=== PATIENT | female | born 1960 | race African-American/Black ===

== ENCOUNTER 2017-05-02 18:54 | Emergency (ER) | payer MEDICARE ==
[~2017-05-02] VITALS: Ht 160 cm; Wt 77.3 kg
[~2017-05-02 18:54] MED LIST: ADALAT CC/P30 MG/TA1 PO; ALLEGRA180 MG PO; AMARYL4 MG PO; ASPIRIN81 MG PO; CIPROFLOXACN500 MG PO; CLONIDINE0.1 MG PO; DIABETA2.5 MG OR; DIABETA5 MG PO; DIOVAN80 MG OR; EFFIENT10 MG PO; FENTANYL TD; FLECTOR1.3 % TD; FLUTICASONE50 MCG; GLIMEPIRIDE2 MG PO; HYDROCHLOROT25 MG OR; HYDROCHLOROT25 MG PO; HYDROCHLOROT50 MG PO; HYZAAR1 TA1 PO; JANUVIA50 MG PO; KAON-CL-1010 MEQ OR; LIBRIUM5 MG OR; LIPITOR40 M1 PO; LO-DOSE ASA81 MG OR; LOPRESSOR25 MG PO; LORTAB5 OR; LOSARTAN POT50 MG PO; METFORMIN1000 MG PO; METFORMIN500 MG PO; METFORMIN850 MG PO; METO25TAB OR; METOPROL TAR25 MG PO; METOPROLOL25 M1 OR; MUCINEX600 MG PO; NIFEDIPINE30 MG PO; PLAVIX75 MG PO; PRAVACHOL20 MG OR; PRAVASTATIN SOD20 MG PO; PROVENTIL HFA IN; SYMBICORT1 AE1 IN; TIZANIDINE4 MG OR; TRAMADOL HCL50 MG PO; VICOPROFEN OR; ZANAFLEX4 M1 OR; ZANAFLEX4 M2 PO; ZANAFLEX4 MG PO; ZITHROMAX250 MG PO; ZOFRAN4 MG/TAB PO
[2017-05-02 20:45] LABS: HEMATOCRIT 38.1 % (37.0-47.0); HEMOGLOBIN 11.9 g/dl (12.0-16.0); IMMATURE GRANULOCYTES 0.3 % (0.0-1.0); MEAN CELL VOLUME 84.1 fL CALC (80.0-100.0); MEAN CORPUSCULAR HGB 26.3 pG CALC (26.0-32.0); MEAN CORPUSCULAR HGB CONC 31.2 g/L CALC (32.0-36.0); NEUT# 3.95 thou/uL (2.00-7.15); RED BLOOD COUNT 4.53 mill/uL (4.20-5.60)
[2017-05-02 21:04] LABS: ANION GAP 16 (6-22 (CALC)); BUN 12 mg/dL (7-17); BUN/CREATININE RATIO 15 (12-20 (CALC)); CARBON DIOXIDE 28 mmol/l (22-30); CHLORIDE 102 mmol/l (95-108); CREATININE 0.8 mg/dL (0.5-1.0); GFR > 60 ML/MIN (>=60 (CALC)); GFR FOR AFR.AMER. > 60 ML/MIN (>=60 (CALC)); GLUCOSE 126 mg/dL (65-105); SODIUM 142 mmol/l (137-146)
[2017-05-02] MEDS ORDERED: PANTOPRAZOLE SO40 MG PO (21:37)
[2017-05-02] MEDS ORDERED: NIFEDIPINE30 MG PO (21:39)
[2017-05-02] MEDS ORDERED: LIPITOR40 M1 PO (21:41)
[2017-05-02 22:20] VITALS: BP 157/78
== END 2017-05-02 22:22 | disposition left against medical advice (07) ==
LOC: ED 18:54
PROVIDERS: Family Medicine
DX: R07.9 Chest pain, unspecified (principal); Z91.19 Patient's noncompliance with other medical treatment and regimen; R10.13 Epigastric pain; I10 Essential (primary) hypertension; I25.2 Old myocardial infarction; E11.9 Type 2 diabetes mellitus without complications; Z79.84 Long term (current) use of oral hypoglycemic drugs

== ENCOUNTER 2017-07-31 20:41 | Emergency (ER) | payer MEDICARE ==
[~2017-07-31] VITALS: Ht 160 cm; Wt 79.8 kg
[~2017-07-31 20:41] MED LIST changes: +PANTOPRAZOLE SO40 MG PO
[2017-07-31] MEDS ORDERED: NOVOLIN N100 UNIT/1 SC (21:06)
[2017-07-31 23:55] VITALS: BP 155/83
== END 2017-07-31 23:55 | disposition home or self-care (01) ==
LOC: ED 20:41
DX: I10 Essential (primary) hypertension (principal); I25.2 Old myocardial infarction

== ENCOUNTER 2017-08-04 11:27 | Emergency (ER) | payer MEDICARE ==
[~2017-08-04] VITALS: Ht 160 cm; Wt 75.0 kg
[~2017-08-04 11:27] MED LIST changes: +NOVOLIN N100 UNIT/1 SC
[2017-08-04 12:15] LABS: HEMATOCRIT 41.5 % (37.0-47.0); HEMOGLOBIN 12.8 g/dl (12.0-16.0); IMMATURE GRANULOCYTES 0.2 % (0.0-1.0); MEAN CELL VOLUME 82.3 fL CALC (80.0-100.0); MEAN CORPUSCULAR HGB 25.4 pG CALC (26.0-32.0); MEAN CORPUSCULAR HGB CONC 30.8 g/L CALC (32.0-36.0); NEUT# 2.96 thou/uL (2.00-7.15); RED BLOOD COUNT 5.04 mill/uL (4.20-5.60); RED CELL DISTRI WIDTH 13.9 % (11.5-15.5)
[2017-08-04 12:38] LABS: ALKALINE PHOSPHATASE 86 u/l (38-126); BILIRUBIN, TOTAL 0.6 mg/dL (0.0-1.4); BUN 11 mg/dL (7-17); BUN/CREATININE RATIO 14 (12-20 (CALC)); CARBON DIOXIDE 25 mmol/l (22-30); CHLORIDE 97 mmol/l (95-108); CREATININE 0.8 mg/dL (0.5-1.0); GFR > 60 ML/MIN (>=60 (CALC)); GFR FOR AFR.AMER. > 60 ML/MIN (>=60 (CALC)); POTASSIUM 4.2 mmol/l (3.5-5.1); SGOT/AST 21 u/l (14-36); SGPT/ALT 38 u/l (9-52); TOTAL PROTEIN 7.2 g/dL (6.3-8.2)
[2017-08-04 12:39] LABS: ANION GAP 15 (6-22 (CALC)); SODIUM 133 mmol/l (137-146)
[2017-08-04 12:50] LABS: URINE BILIRUBIN - DIPSTICK NEGATIVE (NEGATIVE); URINE BLOOD DIPSTICK NEGATIVE (NEGATIVE); URINE COLOR YELLOW; URINE GLUCOSE - DIPSTICK NEGATIVE (NEGATIVE); URINE KETONE NEGATIVE (NEGATIVE); URINE LEUK ESTERASE NEGATIVE (NEGATIVE); URINE NITRITE - DIPSTICK NEGATIVE (Negative); URINE PROTEIN - DIPSTICK NEGATIVE (NEG-TRACE); URINE UROBILINOGEN - DIPSTICK 0.2 E.U./dL (0.2)
[2017-08-04 12:51] LABS: URINE CLARITY CLEAR
[2017-08-04] MEDS ORDERED: NIFEDICAL XL60 MG PO (12:59)
[2017-08-04] MEDS ORDERED: HYDROCHLOROT25 MG PO (12:59)
[2017-08-04 13:10] VITALS: BP 154/80
== END 2017-08-04 13:15 | disposition home or self-care (01) ==
LOC: ED 11:27
PROVIDERS: Family Medicine
DX: I10 Essential (primary) hypertension (principal); E11.9 Type 2 diabetes mellitus without complications; E78.00 Pure hypercholesterolemia, unspecified; I25.2 Old myocardial infarction; Z95.5 Presence of coronary angioplasty implant and graft; K21.9 Gastro-esophageal reflux disease without esophagitis; G89.29 Other chronic pain; M54.2 Cervicalgia; R51 Headache

== ENCOUNTER 2018-09-13 15:57 | Emergency (ER) | payer MEDICARE ==
[~2018-09-13] VITALS: Ht 160 cm; Wt 74.0 kg
[~2018-09-13 15:57] MED LIST changes: +NIFEDICAL XL60 MG PO
[2018-09-13 16:33] LABS: HEMATOCRIT 38.1 % (37.0-47.0); HEMOGLOBIN 11.8 g/dl (12.0-16.0); IMMATURE GRANULOCYTES 0.4 % (0.0-5.0); MEAN CELL VOLUME 82.1 fL CALC (80.0-100.0); MEAN CORPUSCULAR HGB 25.4 pG CALC (26.0-32.0); NEUT# 5.23 thou/uL (2.00-7.15); RED BLOOD COUNT 4.64 mill/uL (4.20-5.60); RED CELL DISTRI WIDTH 14.3 % (11.5-15.5)
[2018-09-13 16:59] LABS: ALBUMIN 4.1 g/dL (3.2-5.0); ALKALINE PHOSPHATASE 67 u/l (38-126); ANION GAP 21 (6-22 (CALC)); BILIRUBIN, TOTAL 0.4 mg/dL (0.0-1.4); BUN 18 mg/dL (7-17); BUN/CREATININE RATIO 16 (12-20 (CALC)); CARBON DIOXIDE 23 mmol/l (22-30); CHLORIDE 97 mmol/l (95-108); CREATININE 1.1 mg/dL (0.5-1.0); GFR 51 ML/MIN (>=60 (CALC)); GFR FOR AFR.AMER. > 60 ML/MIN (>=60 (CALC)); LIPASE 123 u/l (23-300); POTASSIUM 4.5 mmol/l (3.5-5.1); SGOT/AST 20 u/l (14-36); SODIUM 136 mmol/l (137-146); TOTAL PROTEIN 6.8 g/dL (6.3-8.2)
[2018-09-13 17:27] LABS: URINE BILIRUBIN - DIPSTICK NEGATIVE (NEGATIVE); URINE BLOOD DIPSTICK NEGATIVE (NEGATIVE); URINE COLOR YELLOW; URINE GLUCOSE - DIPSTICK NEGATIVE (NEGATIVE); URINE KETONE NEGATIVE (NEGATIVE); URINE LEUK ESTERASE NEGATIVE (NEGATIVE); URINE NITRITE - DIPSTICK NEGATIVE (Negative); URINE PH 6.5 (4.5-8.0); URINE PROTEIN - DIPSTICK NEGATIVE (NEG-TRACE); URINE UROBILINOGEN - DIPSTICK 0.2 E.U./dL (0.2)
[2018-09-13 17:32] VITALS: BP 106/60
== END 2018-09-13 17:41 | disposition home or self-care (01) ==
LOC: ED 15:57
PROVIDERS: Family Medicine
DX: E86.0 Dehydration (principal); I10 Essential (primary) hypertension; E11.9 Type 2 diabetes mellitus without complications; I25.2 Old myocardial infarction; Z95.5 Presence of coronary angioplasty implant and graft

== ENCOUNTER 2018-10-17 08:38 | Day surgery (SDC) | payer MEDICARE ==
[~2018-10-17 08:38] MED LIST changes: +METHOCARBAM500 MG PO; +MONTELUKAST SOD10 MG PO; +PROTONIX40 M2 PO; +TOUJEO SOL300 UNIT/M; +[UNRECOGNIZED DRUG - OTHER] PO
[2018-10-17 11:41] VITALS: BP 125/64
== END 2018-10-17 11:48 | disposition home or self-care (01) ==
LOC: ENDO 08:38 → ORM 11:45 → ENDO 11:45
PROVIDERS: ATTEND Surgery
PROC: 0DJD8ZZ Inspection of Lower Intestinal Tract, Via Natural or Artificial Opening Endoscopic (ICD-10-PCS; principal; 2018-10-17)
DX: R19.5 Other fecal abnormalities (principal); E11.9 Type 2 diabetes mellitus without complications; I10 Essential (primary) hypertension

== ENCOUNTER 2018-12-24 20:36 | Emergency (ER) | payer MEDICARE ==
[~2018-12-24] VITALS: Ht 160 cm; Wt 73.0 kg
[2018-12-24 22:13] LABS: HEMATOCRIT 36.1 % (37.0-47.0); HEMOGLOBIN 11.7 g/dl (12.0-16.0); IMMATURE GRANULOCYTES 0.4 % (0.0-5.0); MEAN CELL VOLUME 79.7 fL CALC (80.0-100.0); MEAN CORPUSCULAR HGB 25.8 pG CALC (26.0-32.0); MEAN CORPUSCULAR HGB CONC 32.4 g/L CALC (32.0-36.0); NEUT# 5.65 thou/uL (2.00-7.15); RED BLOOD COUNT 4.53 mill/uL (4.20-5.60); RED CELL DISTRI WIDTH 14.2 % (11.5-15.5)
[2018-12-24 22:34] LABS: ALBUMIN 4.3 g/dL (3.2-5.0); ALKALINE PHOSPHATASE 69 u/l (38-126); ANION GAP 18 (6-22 (CALC)); BILIRUBIN, TOTAL 0.4 mg/dL (0.0-1.4); BUN 17 mg/dL (7-17); BUN/CREATININE RATIO 20 (12-20 (CALC)); CARBON DIOXIDE 26 mmol/l (22-30); CHLORIDE 96 mmol/l (95-108); CREATININE 0.8 mg/dL (0.5-1.0); GFR > 60 ML/MIN (>=60 (CALC)); GFR FOR AFR.AMER. > 60 ML/MIN (>=60 (CALC)); POTASSIUM 3.9 mmol/l (3.5-5.1); SGOT/AST 19 u/l (14-36); SODIUM 135 mmol/l (137-146); TOTAL PROTEIN 7.3 g/dL (6.3-8.2)
[2018-12-24 23:55] VITALS: BP 113/75
== END 2018-12-24 23:55 | disposition home or self-care (01) ==
LOC: ED 20:36
PROVIDERS: Emergency Medicine
DX: I10 Essential (primary) hypertension (principal); E11.9 Type 2 diabetes mellitus without complications; Z79.4 Long term (current) use of insulin

== ENCOUNTER 2021-01-25 01:22 | Emergency (ER) | payer MEDICARE ==
[~2021-01-25] VITALS: Ht 160 cm; Wt 75.0 kg
[2021-01-25 01:51] LABS: URINE BILIRUBIN - DIPSTICK NEGATIVE (NEGATIVE); URINE BLOOD DIPSTICK NEGATIVE (NEGATIVE); URINE COLOR YELLOW; URINE GLUCOSE - DIPSTICK NEGATIVE (NEGATIVE); URINE KETONE NEGATIVE (NEGATIVE); URINE LEUK ESTERASE NEGATIVE (NEGATIVE); URINE PH 7.5 (4.5-8.0); URINE PROTEIN - DIPSTICK NEGATIVE (NEG-TRACE); URINE SPECIFIC GRAVITY 1.015; URINE UROBILINOGEN - DIPSTICK 0.2 E.U./dL (0.2)
[2021-01-25 01:52] LABS: HEMATOCRIT 42.9 % (37.0-47.0); IMMATURE GRANULOCYTES 0.1 % (0.0-5.0); MEAN CELL VOLUME 86.7 fL CALC (80.0-100.0); MEAN CORPUSCULAR HGB 26.3 pG CALC (26.0-32.0); MEAN CORPUSCULAR HGB CONC 30.3 g/dL CAL (32.0-36.0); NEUT# 3.39 thou/uL (2.00-7.15); RED BLOOD COUNT 4.95 mill/uL (4.20-5.60); RED CELL DISTRI WIDTH 13.9 % (11.5-15.5)
[2021-01-25 01:53] LABS: URINE NITRITE - DIPSTICK NEGATIVE (Negative)
[2021-01-25 02:04] LABS: ALBUMIN 4.6 g/dL (3.2-5.0); ALKALINE PHOSPHATASE 72 u/l (38-126); ANION GAP 14 (6-22 (CALC)); BILIRUBIN, TOTAL 0.4 mg/dL (0.0-1.4); BUN 17 mg/dL (8-23); BUN/CREATININE RATIO 20 (12-20 (CALC)); CARBON DIOXIDE 30 mmol/l (22-30); CHLORIDE 103 mmol/l (95-108); CREATININE 0.8 mg/dL (0.5-1.0); GFR > 60 ML/MIN (>=60 (CALC)); GFR FOR AFR.AMER. > 60 ML/MIN (>=60 (CALC)); POTASSIUM 4.7 mmol/l (3.5-5.1); SGOT/AST 28 u/l (9-36); SODIUM 141 mmol/l (137-146); TOTAL PROTEIN 7.8 g/dL (6.3-8.2)
[2021-01-25 05:59] VITALS: BP 128/70
== END 2021-01-25 05:54 | disposition home or self-care (01) ==
LOC: ED 01:22
PROVIDERS: Emergency Medicine
DX: T46.1X1A Poisoning by calcium-channel blockers, accidental (unintentional), initial encounter (principal); I10 Essential (primary) hypertension; E11.9 Type 2 diabetes mellitus without complications; Z79.84 Long term (current) use of oral hypoglycemic drugs; Z79.4 Long term (current) use of insulin

== ENCOUNTER 2021-08-17 11:31 | Emergency (ER) | payer MEDICARE ==
[~2021-08-17] VITALS: Ht 160 cm; Wt 77.0 kg
[2021-08-17 11:50] VITALS: BP 150/86
[2021-08-17 12:00] VITALS: BP 138/84
[2021-08-17 12:45] VITALS: BP 154/94
[2021-08-17 13:00] VITALS: BP 143/70
[2021-08-17 13:09] LABS: URINE BILIRUBIN - DIPSTICK NEGATIVE (NEGATIVE); URINE BLOOD DIPSTICK NEGATIVE (NEGATIVE); URINE COLOR YELLOW; URINE GLUCOSE - DIPSTICK NEGATIVE (NEGATIVE); URINE KETONE NEGATIVE (NEGATIVE); URINE LEUK ESTERASE NEGATIVE (NEGATIVE); URINE PROTEIN - DIPSTICK NEGATIVE (NEG-TRACE); URINE SPECIFIC GRAVITY <=1.005; URINE UROBILINOGEN - DIPSTICK 0.2 E.U./dL (0.2)
[2021-08-17 13:11] LABS: URINE NITRITE - DIPSTICK NEGATIVE (Negative)
[2021-08-17] MEDS ORDERED: NAPROXEN EC500 MG PO (13:24)
[2021-08-17] MEDS ORDERED: METHOCARBAMOL500 MG PO (13:24)
[2021-08-17 13:51] VITALS: BP 131/85
[2021-08-17 14:00] VITALS: BP 127/77
== END 2021-08-17 13:36 | disposition home or self-care (01) ==
LOC: ED 11:31
PROVIDERS: Nurse Practitioner
DX: S39.012A Strain of muscle, fascia and tendon of lower back, initial encounter (principal); I10 Essential (primary) hypertension; E11.9 Type 2 diabetes mellitus without complications; Z79.4 Long term (current) use of insulin; Z79.84 Long term (current) use of oral hypoglycemic drugs; W18.49XA Other slipping, tripping and stumbling without falling, initial encounter; Y92.512 Supermarket, store or market as the place of occurrence of the external cause

== ENCOUNTER 2023-05-10 20:57 | Emergency (ER) | payer MEDICARE ==
[2023-05-10] VITALS (7 sets, daily range): BP systolic 125–152; BP diastolic 71–78
[~2023-05-10] VITALS: Ht 160 cm; Wt 77.1 kg
[~2023-05-10 20:57] MED LIST changes: +CALCIUM CITRATE1 TAB PO; +COQ10; +CYCLOBENZAPRINE10 MG PO; +FOLIC ACID800 MCG PO; +K2 PLUS D31 TAB PO; +METHOCARBAMOL500 MG PO; +NAPROXEN EC500 MG PO
== END 2023-05-10 22:53 | disposition home or self-care (01) ==
LOC: ED 20:57
DX: T38.3X3A Poisoning by insulin and oral hypoglycemic [antidiabetic] drugs, assault, initial encounter (principal); E11.9 Type 2 diabetes mellitus without complications; I10 Essential (primary) hypertension; Z79.84 Long term (current) use of oral hypoglycemic drugs; Z79.4 Long term (current) use of insulin